=== PATIENT | female | born 1990 | race Caucasian/White ===

== ENCOUNTER 2017-02-21 17:22 | Emergency (ER) | payer OTHER ==
[~2017-02-21] VITALS: Ht 160 cm; Wt 73.1 kg
[~2017-02-21 17:22] MED LIST: ESCI1TAB10 PO; MELA1TAB3 PO; [UNRECOGNIZED DRUG - CODE] PO
[2017-02-21 17:29] VITALS: TEMP 36.9; Ht 160 cm; Wt 73.1 kg
--- NOTE | 2017-02-21 17:57 | EMERGENCY ROOM VISIT NOTE ---
History First contact with patient: 17:37 Chief Complaint: TEST REQUEST Stated Complaint: WANTS PREG TEST History of Present Illness The patient is a 27 year old female who presents to the Emergency Room with complaints of positive test. The patient states that her last normal menstrual period was December 23. She states her period was slightly late in January but she did have some spotting. She states she did not get a period. This week and therefore took a home test. She states it was positive. The patient takes methadone for opiate dependence. She came in to the emergency department for documentation of a positive test. She states she has also had sore throat, sinus congestion and ear pressure for the last 2 days. She denies any fevers. She denies any pain in her chest or trouble breathing. She denies any abdominal pain, vaginal bleeding or vaginal discharge. She is a female Review of Systems A 10 system review of systems was completed with positives and pertinent negatives listed in the HPI. Past Medical/Surgical History Medical Problems: (1) Asthma, Unspecified (2) Chronic Gingivitis, Plaque Induced (3) Tobacco Use Disorder Family History Diabetes mellitus Heart disease Hypertension Social History Smoking Status: Current Every Day Smoker Alcohol Use: occasionally Marital Status: single Occupation Status: employed Current/Historical Medications Scheduled Methadone Hcl (Methadone Hcl), 89 MG PO DAILY Allergies Coded Allergies: Penicillins (Unverified Allergy, Severe, "swelling" had as a child, ) Physical Exam Vital Signs Date Time Temp Pulse Resp B/P Pulse Ox O2 Delivery O2 Flow Rate FiO2 02/21/17 20:07 84 18 124/77 97 02/21/17 17:29 36.9 92 18 150/84 96 Room Air Physical Exam VITALS: Vitals are noted on the nurse's note and reviewed by myself. Vital signs stable. GENERAL: This is a 27 female, in no acute distress, nondiaphoretic, well- developed well-nourished. SKIN: The skin was without rashes, erythema, edema, or bruising. There is no tenting of the skin. Capillary reflex less than 2 seconds. HEAD: Normocephalic atraumatic. EARS: External auditory canals clear, tympanic membranes pearly sheikh without erythema or effusion bilaterally. EYES: Pupils equal round and reactive to light and accommodation. Conjunctivae without injection, sclerae without icterus. Extraocular movements intact. NOSE: Patent, turbinates without inflammation or discharge. MOUTH: Mucous membranes moist. Tonsils are not mildly enlarged and minimally erythematous. Pharynx withoutexudate. Uvula midline. Airway patent. Tongue does not deviate. NECK: Supple without nuchal rigidity. No JVD. HEART: Regular rate and rhythm without murmurs gallops or rubs. LUNGS: Clear to auscultation bilaterally without wheezes, rales or rhonchi. No dullness to percussion. No retractions or accessory muscle use. MUSCULOSKELETAL: No muscle atrophy, erythema, or edema noted. Full range of motion in all extremities. No tenderness to palpation. Normal gait. Strength 5/5 throughout. NEURO: Patient was alert and oriented to person place and time. No focal neurological deficits. Medical Decision & Procedures Laboratory Results Test 02/21/17 18:10 Human Chorionic Gonadotropin, Qual POS (NEG) ED Course Serum HCG was positive Rapid strep was negative The patient was encouraged to stop smoking She is on methadone for opiate dependence. She was advised to discuss this with SECURITIES SETTLEMENT PROCESSOR. She should start a vitamin She should contact SECURITIES SETTLEMENT PROCESSOR to schedule a follow-up appointment She should return with worsening symptoms. Medical Decision Differential diagnosis includes , strep pharyngitis, allergic rhinitis , among others Impression Primary Impression: Additional Impression: Allergic rhinitis Departure Information Dispostion Home / Self-Care Condition GOOD Referrals Minnie Nugent PA-C (PCP) Alena Downing, D.ORob Patient Instructions ED Care, [facility], Preg 1st Trimester Additional Instructions Stop smoking Contact central supply assistant for a follow up appointment to start care and to discuss methadone Take a pre vitamin daily Return with vaginal bleeding, severe abdominal pain Problem Qualifiers Primary Impression:
[2017-02-21 19:26] LABS: PREG INTERNAL NEGATIVE QC NEG CLEAR BACKGROUND; PREG INTERNAL POSITIVE QC POS CONTROL LINE
[2017-02-21 20:07] VITALS: BP 124/77; PULSE 84; O2SAT 97
== END 2017-02-21 20:09 | disposition home or self-care (01) ==
LOC: C.EDB 17:23 → C.EDD 20:09
DX: Z32.01 Encounter for pregnancy test, result positive (principal); J02.9 Acute pharyngitis, unspecified; F11.21 Opioid dependence, in remission; Z79.899 Other long term (current) drug therapy; J45.909 Unspecified asthma, uncomplicated; F17.210 Nicotine dependence, cigarettes, uncomplicated; Z83.3 Family history of diabetes mellitus; Z82.49 Family history of ischemic heart disease and other diseases of the circulatory system

== ENCOUNTER → 2017-03-04 | Outpatient (CLI) | payer OTHER ==
[~2017-03-04] MED LIST changes: -ESCI1TAB10 PO; -MELA1TAB3 PO; +METH10SO PO; +PRENTAB26 PO; -[UNRECOGNIZED DRUG - CODE] PO
[2017-03-08 15:28] LABS: CHLAMYDIA TRACH RNA*** NOT DETECTED (NOT DETECTED); GC (NEIS GONORRHOEAE)RNA** NOT DETECTED (NOT DETECTED)
== END | disposition home or self-care (01) ==
LOC: C.LABSPEC 10:33
PROVIDERS: ATTEND Obstetrics & Gynecology
DX: Z34.01 Encounter for supervision of normal first pregnancy, first trimester (principal)

== ENCOUNTER → 2017-03-04 | Outpatient (CLI) | payer OTHER ==
[~2017-03-04] MED LIST changes: +ALBU2SYP9 INH; +CALC-51 PO; +DOCU-94 PO
== END | disposition home or self-care (01) ==
LOC: C.PAPS 09:44
PROVIDERS: ATTEND Obstetrics & Gynecology
DX: Z34.01 Encounter for supervision of normal first pregnancy, first trimester (principal); R87.610 Atypical squamous cells of undetermined significance on cytologic smear of cervix (ASC-US)

== ENCOUNTER → 2017-03-06 | Outpatient (CLI) | payer OTHER | END | disposition home or self-care (01) | LOC: C.LAB 14:49 | PROVIDERS: ATTEND Obstetrics & Gynecology | DX: Z34.01 Encounter for supervision of normal first pregnancy, first trimester (principal) ==

== ENCOUNTER 2017-04-07 16:01 | Emergency (ER) | payer OTHER ==
[~2017-04-07] VITALS: Ht 160 cm; Wt 71.1 kg
[2017-04-07 16:13] VITALS: Ht 160 cm; Wt 71.1 kg
--- NOTE | 2017-04-07 16:42 | EMERGENCY ROOM VISIT NOTE ---
History Report prepared by Monik: Erin Mckeon Under the Supervision of: Dr. Yolanda Collier D.O. First contact with patient: 16:28 Chief Complaint: CONSTIPATION Stated Complaint: CONSTIPATION CAUSING PAIN,10 WKS PREG Nursing Triage Summary: Pt reports she has been constipated. pt repors she is on methadone and is usually constipated. Pt has been taking stool softeners and suppositories with no success. Pt is 10 weeks . History of Present Illness The patient is a 27 year old female who presents to the Emergency Room with complaints of constant constipation beginning a few days prior to arrival. The patient states that she is on Methadone and becomes constipated very easily. She had not taken a stool softener for 4 days. The patient has tried stool softeners and suppositories with no success of relieving her symptoms. The patient reports she is in significant pain and that she can feel the stool in her rectum. The patient also notes she has been vomiting after eating. She is 10 weeks . Source of History: patient Onset: few days RESEARCH MANAGEMENT ASSOCIATE Position: other (global) Quality: other (constipated) Timing: constant Associated Symptoms: + vomiting Note: The patient is in significant pain and can feel the stool in her rectum. Review of Systems See HPI for pertinent positives & negatives. A total of 10 systems reviewed and were otherwise negative. Past Medical & Surgical Medical Problems: (1) Asthma, Unspecified (2) Chronic Gingivitis, Plaque Induced (3) Tobacco Use Disorder Family History Diabetes mellitus Heart disease Hypertension Social History Smoking Status: Current Every Day Smoker Alcohol Use: occasionally Marital Status: in relationship Housing Status: lives with significant other Occupation Status: employed Current/Historical Medications Scheduled Methadone Hcl (Methadone Hcl), 96 MG PO DAILY Multivit/Min/Iron/Fol Ac/Pren ( Vitamin), 1 TAB PO DAILY Allergies Coded Allergies: Penicillins (Unverified Allergy, Severe, "swelling" had as a child, ) Physical Exam Vital Signs Date Time Temp Pulse Resp B/P Pulse Ox O2 Delivery O2 Flow Rate FiO2 04/07/17 17:53 69 16 115/62 04/07/17 17:45 36.7 98 18 117/77 94 04/07/17 16:13 36.7 98 18 117/77 94 Room Air Physical Exam General: Patient is tearful. HEENT: Head - normocephalic and atraumatic Pupils are equal, round, and reactive to light. Extraocular eye muscles are intact, and sclera are anicteric. Nose - moist nasal mucosa without discharge. Mouth - moist buccal mucosa. Oropharynx is nonerythematous and there is no tonsillar exudate or edema noted. Neck: Supple; no JVD, nuchal rigidity, cervical lymphadenopathy. Heart: Regular rate and rhythm. There is a normal S1 and S2 with no murmurs, clicks, or gallops appreciated. Lungs: Clear to auscultation bilaterally with no wheezes, rales, or rhonchi. Abdomen: Soft, completely nontender, nondistended, with good bowel sounds. There are no palpable pulsatile masses or hepatosplenomegaly. There is no guarding, rigidity, or rebound noted. Extremities: No evidence of cyanosis, clubbing, or edema. There are easily palpable peripheral pulses. Skin: warm and dry with good turgor and no rashes. Medical Decision & Procedures ED Course 1632: Past medical records reviewed. The patient was evaluated in room A3. A complete history and physical exam was performed. The nurse will try manual disimpaction. 1731: I reevaluated the patient. The nurse tried to disimpact the patient and nothing was there. The patient is drinking prune juice right now. She is feeling slightly better. 1740: Upon reevaluation, the patient is drinking the prune juice and will be discharged home. Medical Decision The patient is a 27 year old female who presents to the ED with constipation. Differential diagnosis includes constipation, fecal impaction, bowel obstruction. I've encouraged the patient to avoid bananas and dairy products. I suggested that she taking her stool softener as directed for her methadone-induced constipation. She can take prune juice and pear juice. If she does not have a bowel movement in the next 24-48 hours, she should follow-up with Dr. Barrett Gale Primary Impression: First trimester Additional Impression: Constipation Scribe Attestation The scribe's documentation has been prepared under my direction and personally reviewed by me in its entirety. I confirm that the note above accurately reflects all work, treatment, procedures, and medical decision making performed by me. Departure Information Dispostion Home / Self-Care Referrals No Doctor, Assigned (PCP) Forms HOME CARE DOCUMENTATION FORM, IMPORTANT VISIT INFORMATION Patient Instructions [facility] Additional Instructions Take plenty of clear liquids Take prune juice and pear juice. Avoid bananas and dairy over next 3-5 days Take your stool softner as directed by Dr. Hyde for the methadone induced constipated Problem Qualifiers
[2017-04-07] MEDS ORDERED: PRENTAB26 PO (17:18)
[2017-04-07 17:45] VITALS: TEMP 36.7; O2SAT 94
[2017-04-07 17:53] VITALS: BP 115/62; PULSE 69
[2017-04-07] MEDS ORDERED: METH10SO PO (18:28)
== END 2017-04-07 17:54 | disposition home or self-care (01) ==
LOC: C.EDB 16:02 → C.EDA 17:54
DX: K59.00 Constipation, unspecified (principal); O99.331 Smoking (tobacco) complicating pregnancy, first trimester; Z3A.10 10 weeks gestation of pregnancy; R11.10 Vomiting, unspecified; J45.909 Unspecified asthma, uncomplicated; K05.10 Chronic gingivitis, plaque induced; Z83.3 Family history of diabetes mellitus; Z82.49 Family history of ischemic heart disease and other diseases of the circulatory system

== ENCOUNTER → 2017-07-19 | Outpatient (CLI) | payer OTHER ==
[~2017-07-19] MED LIST changes: -ALBU2SYP9 INH; -CALC-51 PO; -DOCU-94 PO
[2017-07-19 10:50] LABS: BASO % 0.2 %; BASO ABS # 0.02 K/uL (0-0.2); COMPLETE YES; EOS % 2.9 %; HEMATOCRIT 38.5 % (37-47); IG% 0.3 %; LYMPH % 19.3 %; LYMPH ABS # 1.84 K/uL (1.2-3.4); MEAN CORPUSCULAR HEMOGLOBIN 31.9 pg (25-34); MEAN CORPUSCULAR HGB CONC 34.3 g/dl (32-36); MEAN PLATELET VOLUME 8.9 fL (7.4-10.4); MONO % 5.7 %; NEUT % 71.6 %; PLATELET COUNT 318 K/uL (130-400); RED BLOOD COUNT 4.14 M/uL (4.2-5.4); WHITE BLOOD COUNT 9.55 K/uL (4.8-10.8)
[2017-07-19 11:11] LABS: GTGD 50 Grams
== END | disposition home or self-care (01) ==
LOC: C.LAB 09:13
PROVIDERS: ATTEND Obstetrics & Gynecology
DX: Z34.02 Encounter for supervision of normal first pregnancy, second trimester (principal)

== ENCOUNTER 2017-08-01 13:42 | Emergency (ER) | payer OTHER ==
[~2017-08-01] VITALS: Ht 162.6 cm; Wt 76.0 kg
[2017-08-01 13:49] VITALS: TEMP 36.8; Ht 162.6 cm; Wt 76.0 kg
--- NOTE | 2017-08-01 14:33 | EMERGENCY ROOM VISIT NOTE ---
History Report prepared by Monik: Juan Carlos Clemente Under the Supervision of: Dr. Elver Burgos M.D. First contact with patient: 13:58 Chief Complaint: RIB PAIN Stated Complaint: 6MO PREG -LEFT RIB, PAIN, HARD TO BREATHE/MOVE History of Present Illness The patient is a 27 year old female who presents to the Emergency Room with complaints of worsening left rib pain beginning a few days ago. The patient states that she has been coughing a lot lately from a sinus infection, and she thought that her discomfort was from that. She reports that last night she bent over and heard a 'pop'. The patient notes that she felt a cramping sensation, and she has been in pain since. She states that she cannot cough, sneeze, talk, breath, or lift anything without increasing her discomfort. The patient reports that she is currently 27 weeks and wants to make sure everything is okay. She notes that she can still feel the baby moving. The patient states that she is currently taking methadone because she has a history of opiate abuse. She reports that she has been clean for 2 years. The patient notes that she has been using icy hot for pain because she is on methadone. She states that she has a history of bruised ribs, but her pain is much worse. The patient denies edema to her legs, vaginal bleeding, hematuria, vaginal discharge, abdominal pain, back pain, diarrhea, dysuria, and trauma. She also denies a history of pneumonia, pneumothorax, PE, blood clots, heart disease, and . The patient notes that she has a history of asthma and uses her inhaler as needed. She states that she was told she was hypertensive at the methadone clinic today. Source of History: patient, family Onset: few days ago Position: other (left rib) Quality: cramping Timing: worsening Modifying Factors (Worsening): breathing, movement Associated Symptoms: No abdominal pain, No back pain, No diarrhea Note: The patient denies edema to her legs, vaginal bleeding, hematuria, vaginal discharge, dysuria, and trauma. Review of Systems See HPI for pertinent positives & negatives. A total of 10 systems reviewed and were otherwise negative. Past Medical & Surgical Medical Problems: (1) Asthma, Unspecified (2) Chronic Gingivitis, Plaque Induced (3) Tobacco Use Disorder Old medical records were reviewed. Nurse's notes were reviewed and I agree with. Family History Diabetes mellitus Heart disease Hypertension Social History Smoking Status: Current Every Day Smoker Alcohol Use: occasionally Marital Status: in relationship Housing Status: lives with significant other Occupation Status: employed Current/Historical Medications Scheduled Methadone Hcl (Methadone Hcl), 96 MG PO DAILY Multivit/Min/Iron/Fol Ac/Pren ( Vitamin), 1 TAB PO DAILY Allergies Coded Allergies: Penicillins (Unverified Allergy, Severe, "swelling" had as a child, ) Physical Exam Vital Signs Date Time Temp Pulse Resp B/P (MAP) Pulse Ox O2 Delivery O2 Flow Rate FiO2 08/01/17 15:11 84 20 111/64 94 08/01/17 13:49 36.8 81 18 125/77 95 Room Air Physical Exam General: Well developed well nourished in no acute distress, breathing comfortably on room air. Normal speech. Non-ill appearing, young female. HEENT: Normal cephalic atraumatic. Pupils are equal round and reactive to light. Extraocular movements are intact. Oropharynx is pink with moist mucous membranes. No swelling of the mouth lips or tongue. Neck: Supple with a midline trachea. No meningeal signs or stiffness, no JVD or bruits. No Stridor. Chest: Clear to auscultation bilaterally. No wheezes or rhonchi. No increased work of breathing. Reproducible tenderness in the left lower rib, increased discomfort with movement, no crepitus. Heart: regular rate and rhythm. Abdomen: Soft nontender, gravid without rebound guarding or rigidity. Extremities: No cyanosis clubbing or edema. No calf tenderness or assymetry Spine/Back. Non tender to palpation. No CVA tenderness Skin: Good turgor without rashes. Neurologic exam: Cranial nerves two through 12 are intact. Motor and sensation are intact and symmetrical throughout. Medical Decision & Procedures ER Provider Diagnostic Interpretation: X-ray results as stated below per interpretation by me and the radiologist: Chest x-ray per my interpretation reveals no pneumothorax, failure, infiltrate, or definite rib fracture. CHEST ONE VIEW PORTABLE CLINICAL HISTORY: Left lower rib pain. Difficulty breathing. . COMPARISON STUDY: Chest radiograph August 01, 2016. TECHNIQUE: Mid to lower abdomen and pelvis were double shielded due to . Portable upright AP chest radiograph was obtained. FINDINGS: There is no pneumothorax or pleural effusion. Lungs are clear. Cardiomediastinal silhouette is normal. There is no evidence of pulmonary edema. There is a possible acute nondisplaced fracture of the lateral left seventh rib. There is also an age indeterminate minimally displaced fracture of the anterior lateral left 10th rib. IMPRESSION: 1. No pneumothorax. 2. Possible acute nondisplaced fracture of the anterolateral left seventh rib and age indeterminate minimally displaced fracture of the anterolateral left 10th rib. Electronically signed by: Michel Raza M.D. 08/01/2017 2:49 PM Dictated Date/Time: 08/01/2017 2:43 PM ECG Indication: other (rib pain) Rate (beats per minute): 75 Rhythm: normal sinus Findings: no ectopy, other (nonspecific-T wave abnormality) Comparison ECG Date: 08/17/14 Change: no significant change ED Course 1405: Past medical records reviewed. The patient was evaluated in room C12B, and a complete history and physical examination were performed. 1448: I reevaluated the patient and discussed her current exam findings. She reports that she is resting comfortably. We are waiting for the official x-ray read. 1504: Upon reevaluation, the patient is resting comfortably. I discussed the results and treatment plan with her. She verbalized agreement of the treatment plan. The patient was discharged home. Medical Decision Differentials include, but are not limited to; rib fracture, rib strain, PE, pneumonia, pneumothorax, complication. This patient comes in as described above. She has pain in her left lower rib, she is exquisitely tender one focal area. She's been having pain and she felt a pop. She is . She's had normal movements. No vaginal bleeding or discharge. No urinary symptoms. No fever. I did a chest x-ray after we shielded the baby. there was no pulmonary process seen. She had a nonischemic EKG. There is a questionable rib fracture on the left. Clinically she has nothing to suggest PE. Again she is exquisitely tender in 1 small area. She has nothing to suggest infection or acute problem related to her . She has no peripheral edema. She has nothing to suggest suggest preeclampsia. She is on methadone. She can continue to use his for pain and use [id number] ibuprofen 650 mg every 6 hours do not take with any other Tylenol products and do not exceed the [id number] recommended dosages. Return to ER if: Increasing pain, worsening of symptoms, fever chills, any new problems or concerns. Impression Primary Impression: Rib fracture Additional Impressions: Chest pain Scribe Attestation The scribe's documentation has been prepared under my direction and personally reviewed by me in its entirety. I confirm that the note above accurately reflects all work, treatment, procedures, and medical decision making performed by me. Departure Information Dispostion Home / Self-Care Referrals Andriy Blount III, M.D. (PCP) Forms HOME CARE DOCUMENTATION FORM, IMPORTANT VISIT INFORMATION, WORK / SCHOOL INSTRUCTIONS Patient Instructions My [facility] Additional Instructions Rest. Drink plenty of fluids. Continue current pain medications May also use Tylenol/acetaminophen a maximum of 650 mg every 6 hours. Do not take with any other medications that contain acetaminophen/Tylenol Return if: Increasing pain, worsening of symptoms, shortness of breath, fever or chills, any new problems or concerns Follow-up with your doctor for recheck this coming week or return here over the weekend if symptoms worsen Problem Qualifiers
--- NOTE | 2017-08-01 14:50 | DIAGNOSTIC IMAGING REPORT ---
CHEST ONE VIEW PORTABLE CLINICAL HISTORY: Left lower rib pain. Difficulty breathing. . COMPARISON STUDY: Chest radiograph August 01, 2016. TECHNIQUE: Mid to lower abdomen and pelvis were double shielded due to . Portable upright AP chest radiograph was obtained. FINDINGS: There is no pneumothorax or pleural effusion. Lungs are clear. Cardiomediastinal silhouette is normal. There is no evidence of pulmonary edema. There is a possible acute nondisplaced fracture of the lateral left seventh rib. There is also an age indeterminate minimally displaced fracture of the anterior lateral left 10th rib. IMPRESSION: 1. No pneumothorax. 2. Possible acute nondisplaced fracture of the anterolateral left seventh rib and age indeterminate minimally displaced fracture of the anterolateral left 10th rib. Electronically signed by: Michel Raza M.D. 08/01/2017 2:49 PM Dictated Date/Time: 08/01/2017 2:43 PM
[2017-08-01 15:11] VITALS: BP 111/64; PULSE 84; O2SAT 94
== END 2017-08-01 15:12 | disposition home or self-care (01) ==
LOC: C.EDB 13:45 → C.EDC 15:12
DX: O9A.212 Injury, poisoning and certain other consequences of external causes complicating pregnancy, second trimester (principal); S22.32XA Fracture of one rib, left side, initial encounter for closed fracture; X58.XXXA Exposure to other specified factors, initial encounter; J45.909 Unspecified asthma, uncomplicated; F17.200 Nicotine dependence, unspecified, uncomplicated; Z88.0 Allergy status to penicillin; Z83.3 Family history of diabetes mellitus; Z82.49 Family history of ischemic heart disease and other diseases of the circulatory system

== ENCOUNTER 2017-08-08 17:32 | Emergency (ER) | payer OTHER ==
[~2017-08-08] VITALS: Ht 162.6 cm; Wt 75.4 kg
[2017-08-08 17:36] VITALS: TEMP 37; Ht 162.6 cm; Wt 75.4 kg
[2017-08-08] MEDS ORDERED: MoRPHine SULFATE 4 MG/ML 1 ML CARP\\VIAL IV STA (17:50)
--- NOTE | 2017-08-08 18:49 | DIAGNOSTIC IMAGING REPORT ---
L RIBS UNILATERAL WITH PA CHEST CLINICAL HISTORY: Left sided rib pain s/p coughing. Hx fx. () pain COMPARISON STUDY: 08/01/2017 FINDINGS: Interval fracture left ninth rib. Remaining fractures are unchanged. Lungs remain clear. No evidence pneumothorax. IMPRESSION: Interval fracture left ninth rib. Pre-existing fractures are unchanged. No evidence for pneumothorax. The above report was generated using voice recognition software. It may contain grammatical, syntax or spelling errors. Electronically signed by: Cristi Cota M.D. 08/08/2017 6:48 PM Dictated Date/Time: 08/08/2017 6:46 PM
--- NOTE | 2017-08-08 19:08 | DIAGNOSTIC IMAGING REPORT ---
LIMITED (US) CLINICAL HISTORY: Cough, left rib pain now cramping. pain TECHNIQUE: Ultrasound COMPARISON STUDY: None FINDINGS: Single, viable intrauterine . Is made of gestational age 28 weeks. Cephalic presentation. Maternal cervix is closed and measures 5 cm. Anterior placenta. Amniotic fluid index 15 cm. heart rate 1 51 bpm. IMPRESSION: Single, viable intrauterine of approximately 28 weeks gestational age. The above report was generated using voice recognition software. It may contain grammatical, syntax or spelling errors. Electronically signed by: Cristi Cota M.D. 08/08/2017 7:07 PM Dictated Date/Time: 08/08/2017 7:05 PM
--- NOTE | 2017-08-08 20:01 | EMERGENCY ROOM VISIT NOTE ---
History First contact with patient: 17:41 Chief Complaint: RIB PAIN Stated Complaint: BROKEN RIBS,COUGHED,ABD/FLANK PAIN,28WKS PREG History of Present Illness The patient is a 27 year old female who presents to the Emergency Room via private vehicle with complaints of "broken ribs, cough, abdomen/flank pain, 28 weeks ". The patient states that she was seen here not long ago and diagnosed with rib fractures after bending forward. She states that she was doing well, but unfortunately today she was in her car, or in 1 PM and coughed, and heard a popping noise in the left anterior ribs. She now notes pain in this region, as well as cramping in the abdomen. She rates her pain as a 9/ 10. She denies any vaginal bleeding. She denies any chest pain or shortness of breath prior to the coughing incident around 1 PM. She takes methadone, and a multivitamin. Review of Systems A complete 10-point Review of Systems was discussed with the patient, with pertinent positives and negatives listed in the History of Present Illness. All remaining Review of Systems questions can be considered negative unless otherwise specified. Past Medical/Surgical History Medical Problems: (1) Asthma, Unspecified (2) Chronic Gingivitis, Plaque Induced (3) Tobacco Use Disorder Family History Diabetes mellitus Heart disease Hypertension Social History Smoking Status: Current Every Day Smoker Alcohol Use: occasionally Marital Status: in relationship Housing Status: lives with significant other Occupation Status: employed Current/Historical Medications Scheduled Methadone Hcl (Methadone Hcl), 96 MG PO DAILY Multivit/Min/Iron/Fol Ac/Pren ( Vitamin), 1 TAB PO DAILY Physical Exam Vital Signs Date Time Temp Pulse Resp B/P (MAP) Pulse Ox O2 Delivery O2 Flow Rate FiO2 08/08/17 20:13 96 18 125/79 94 08/08/17 18:08 82 20 130/70 99 Room Air 08/08/17 17:36 37.0 111 28 145/81 98 Room Air Physical Exam VITAL SIGNS - Vital signs and nursing notes were reviewed. Stable. Tachycardic. GENERAL -27-year-old female appearing her stated age who is in no acute distress but appears very anxious and is tearful. Communicates well with provider and answers questions appropriately. SKIN - Without rashes. No bruising, or evidence of trauma to the left anterior chest or abdomen. HEAD - NC/AT. EYES - Sclera anicteric. EARS - No deformities of external structures noted on gross examination bilaterally. NOSE - Midline and without cyanosis. No epistaxis or purulent drainage noted. MOUTH/OROPHARYNX - Without perioral cyanosis. NECK - Neck with FROM. Supple to palpation. LUNGS - Chest wall symmetric without accessory muscle use, intercostals retractions, or central cyanosis. Normal vesicular breath sounds CTA B/L. No wheezes, rales, or rhonchi appreciated. There is tenderness to palpation overlying the patient's left lateral anterior ribs. CARDIAC - RRR with S1/S2. No murmur, rubs, or gallops appreciated. ABDOMEN - Abdominal contour normal without pulsations or visible masses. No tenderness noted. Positioning of the fetus is appropriate. Medical Decision & Procedures ER Provider Diagnostic Interpretation: L RIBS UNILATERAL WITH PA CHEST CLINICAL HISTORY: Left sided rib pain s/p coughing. Hx fx. () pain COMPARISON STUDY: 08/01/2017 FINDINGS: Interval fracture left ninth rib. Remaining fractures are unchanged. Lungs remain clear. No evidence pneumothorax. IMPRESSION: Interval fracture left ninth rib. Pre-existing fractures are unchanged. No evidence for pneumothorax. The above report was generated using voice recognition software. It may contain grammatical, syntax or spelling errors. Electronically signed by: Cristi Cota M.D. 08/08/2017 6:48 PM Dictated Date/Time: 08/08/2017 6:46 PM LIMITED (US) CLINICAL HISTORY: Cough, left rib pain now cramping. pain TECHNIQUE: Ultrasound COMPARISON STUDY: None FINDINGS: Single, viable intrauterine . Is made of gestational age 28 weeks. Cephalic presentation. Maternal cervix is closed and measures 5 cm. Anterior placenta. Amniotic fluid index 15 cm. heart rate 1 51 bpm. IMPRESSION: Single, viable intrauterine of approximately 28 weeks gestational age. The above report was generated using voice recognition software. It may contain grammatical, syntax or spelling errors. Electronically signed by: Cristi Cota M.D. 08/08/2017 7:07 PM Dictated Date/Time: 08/08/2017 7:05 PM Medications Administered Medications (Trade) Dose Ordered Sig/Abbi Route Start Time Stop Time Status Last Admin Dose Admin Morphine Sulfate (MoRPHine SULFATE INJ) 4 mg NOW STAT IV 08/08/17 17:50 08/08/17 17:53 DC 08/08/17 18:08 4 MG Medical Decision Patient was seen and evaluated as above. She presents to us today with left rib pain status post coughing. There is no evidence of trauma on exam. She denies any abuse/trauma or violence. Previous visit was reviewed. Benefit versus risk of obtaining x-ray were considered, and the decision was made to obtain a radiograph of the ribs. This reveals an interval development of left anterior ninth rib fracture. She was given morphine intravenously for her pain , after discussing benefits versus risk. She was reevaluated and feeling much better. A ultrasound was also obtained. Results as above and noted to be excellent. The patient at this time is resting comfortable. I then discussed the case with the attending physician, and subsequent to the patient' s [employer] physician as this is unusual the patient is expressing fractures such as this with simple coughing and bending over. It was identified through the conversation with Dr. Hyde, that this certainly is unusual, but he would be happy to see the patient in his office by having the patient call his office first thing Friday morning at 9 AM. We discussed pain options, and it was decided that the patient could take Tylenol. She is already on methadone. At this time the patient appears stable for outpatient management. She was educated upon management, educated upon worrisome symptoms which to return, was given a work note with resections, had questions answered prior to discharge, and was discharged, condition. There is no evidence of IA or PE on examination. In the evaluation and treatment of this patient, the following differential diagnoses were considered: Rib Fracture, Rib Contusion, Hemothorax, Pneumothorax , Pneumonia, Pleural Effusion. Impression Primary Impression: Rib fracture Departure Information Dispostion Home / Self-Care Condition GOOD Referrals Andriy Blount III, M.D. (PCP) Patient Instructions My [facility] Additional Instructions You have been treated in the Emergency Department for Rib pain on the left. You have received pain medicine in the emergency department which impairs your ability to operate a vehicle. It is illegal for you to drive after receiving these medicines. For pain control, you can use the following [id number] medicines (if >12 yo): - Regular strength (325mg/tab) Tylenol (acetaminophen) 2 tabs every 4-6 hours as needed. Do not exceed 12 tablets in a 24 hour period. Avoid taking more than 3 grams (3000 mg) of Tylenol per day. This includes any other sources of acetaminophen you may take on a regular basis. If this is an acute injury, ice can be applied to the area of pain for the first 3 days to help decrease pain and inflammation. After the first 3 days, a heating pad can be used over the area for continued soothing relief. To minimize your discomfort, you can hug a pillow while coughing or sneezing. Additionally, you should continue to force yourself to take nice, deep breaths. Full expansion of the lungs is necessary to prevent the accumulation of fluid in the lung tissue and development of pneumonia. Please call your obgyn friday at 9am to schedule an appt. Please use the Incentive Spirometer several times per hour while awake to help prevent the development of pneumonia. Return to the Emergency Department if your current symptoms worsen despite treatment course outlined above, or if you develop any of the following symptoms : intractable pain despite aforementioned treatment course, development of a wet cough, bloody cough, fever, chills, or increased shortness of breath. L RIBS UNILATERAL WITH PA CHEST CLINICAL HISTORY: Left sided rib pain s/p coughing. Hx fx. () pain COMPARISON STUDY: 08/01/2017 FINDINGS: Interval fracture left ninth rib. Remaining fractures are unchanged. Lungs remain clear. No evidence pneumothorax. IMPRESSION: Interval fracture left ninth rib. Pre-existing fractures are unchanged. No evidence for pneumothorax. LIMITED (US) CLINICAL HISTORY: Cough, left rib pain now cramping. pain TECHNIQUE: Ultrasound COMPARISON STUDY: None FINDINGS: Single, viable intrauterine . Is made of gestational age 28 weeks. Cephalic presentation. Maternal cervix is closed and measures 5 cm. Anterior placenta. Amniotic fluid index 15 cm. heart rate 1 51 bpm.
[2017-08-08 20:13] VITALS: BP 125/79; PULSE 96; O2SAT 94
== END 2017-08-08 20:14 | disposition home or self-care (01) ==
LOC: C.EDB 17:32 → C.EDC 20:14
DX: M84.48XA Pathological fracture, other site, initial encounter for fracture (principal); O26.893 Other specified pregnancy related conditions, third trimester; O99.513 Diseases of the respiratory system complicating pregnancy, third trimester; R05 Cough; J45.909 Unspecified asthma, uncomplicated; O99.335 Smoking (tobacco) complicating the puerperium; Z79.891 Long term (current) use of opiate analgesic; Z79.899 Other long term (current) drug therapy; Z82.49 Family history of ischemic heart disease and other diseases of the circulatory system; Z83.3 Family history of diabetes mellitus; F17.200 Nicotine dependence, unspecified, uncomplicated; Z3A.28 28 weeks gestation of pregnancy

== ENCOUNTER → 2017-08-12 | Outpatient (CLI) | payer OTHER | END | disposition home or self-care (01) | LOC: C.LAB 15:55 | PROVIDERS: ATTEND Obstetrics & Gynecology | DX: R05 Cough (principal); E55.9 Vitamin D deficiency, unspecified ==

== ENCOUNTER → 2017-10-02 | Outpatient (CLI) | payer OTHER | END | disposition home or self-care (01) | LOC: C.LABSPEC 14:28 | PROVIDERS: ATTEND Obstetrics & Gynecology | DX: O09.93 Supervision of high risk pregnancy, unspecified, third trimester (principal); Z3A.00 Weeks of gestation of pregnancy not specified ==

== ENCOUNTER 2017-10-23 07:50 | Inpatient (IN) | payer OTHER ==
[~2017-10-23] VITALS: Ht 160 cm; Wt 82.0 kg
[2017-10-23 09:07] VITALS: Ht 160 cm; Wt 82.0 kg
[2017-10-23] MEDS ORDERED: DOCU-94 PO (09:15)
[2017-10-23] MEDS ORDERED: ALBU2SYP9 INH (09:20)
[2017-10-23] MEDS ORDERED: LACTATED RINGER'S 1000ML 1,000 ML IV PRN (10:15)
[2017-10-23] MEDS ORDERED: LACTATED RINGER'S 1000ML 1,000 ML IV SCH (10:15)
[2017-10-23] MEDS ORDERED: LACTATED RINGER'S 1000ML 500 ML IV PRN ×2 (10:20→13:41)
[2017-10-23] MEDS ORDERED: OXYTOCIN 30 UNITS/500ML NSS IV PRN ×2 (10:30→17:30)
[2017-10-23 11:16] LABS: HEMATOCRIT 36.2 % (37-47); MEAN CELL VOLUME 88.7 fL (80-100); MEAN CORPUSCULAR HEMOGLOBIN 31.6 pg (25-34); MEAN CORPUSCULAR HGB CONC 35.6 g/dl (32-36); MEAN PLATELET VOLUME 9.1 fL (7.4-10.4); PLATELET COUNT 257 K/uL (130-400); RED BLOOD COUNT 4.08 M/uL (4.2-5.4)
[2017-10-23] MEDS ORDERED: CALC-51 PO (11:57)
[2017-10-23] MEDS ORDERED: FENTANYL 2MCG/ML ROPIV 1.25MG/ML 100ML BAG EPI ONE (12:52)
[2017-10-23] MEDS ORDERED: EpHEDrine SULFATE INJ 50 MG/ML AMP ONE (12:52)
[2017-10-23] MEDS ORDERED: BUPIVACAINE 0.25% 30 ML VIAL ONE (12:52)
[2017-10-23] MEDS ORDERED: FENTANYL CITRATE INJ 50 MCG/1 ML 2 ML VIAL ONE (12:53)
[2017-10-23] MEDS ORDERED: NALOXONE HCL INJ 1 MG in SODIUM CHLORIDE 0.9% 1000ML 1,000 ML IV PRN (13:41)
[2017-10-23] MEDS ORDERED: FENTANYL 2MCG/ML ROPIV 1.25MG/ML 100ML BAG EPI PRN (13:45)
[2017-10-23] MEDS ORDERED: NALOXONE HCL INJ 0.4 MG/1 ML VIAL/CARP IV PRN (13:45)
[2017-10-23] MEDS ORDERED: NALBUPHINE HCL INJ 10 MG/ML AMP IV PRN (13:45)
[2017-10-23] MEDS ORDERED: DiphenhydrAMINE HCL 50 MG/ML VIAL IV PRN (13:45)
[2017-10-23] MEDS ORDERED: EpHEDrine SULFATE INJ 50 MG/ML AMP IV PRN (13:45)
[2017-10-23] MEDS ORDERED: METHYLERGONOVINE MALEATE 0.2 MG/ML AMP ONE (17:13)
[2017-10-23] MEDS ORDERED: SUPERCREAM 0.870 % 15GM JAR EXT PRN (17:30)
[2017-10-23] MEDS ORDERED: ACETAMINOPHEN/CODEINE 300/30MG TAB PO PRN (17:30)
[2017-10-23] MEDS ORDERED: HYDROCORTISONE ACETATE 25 MG SUPP PR PRN (17:30)
[2017-10-23] MEDS ORDERED: ACETAMINOPHEN 325 MG TAB PO PRN (17:30)
[2017-10-23] MEDS ORDERED: BENZOCAINE 20% AER SPR 82.5 GM CAN EXT PRN (17:30)
[2017-10-23] MEDS ORDERED: OXYCODONE/ACETAMINOPHEN 5-325 TAB PO PRN (17:30)
[2017-10-23] MEDS ORDERED: LANOLIN OINT EXT PRN ×2 (17:30)
--- NOTE | 2017-10-23 17:55 | Anesthesia Procedure Note ---
Anesthesia Epidural Removal Nt Date & Time Oct 23, 2017 at 17:55 Vital Signs Pain Intensity: 0.0 Notes Mental Status: alert / awake / arousable, participated in evaluation Nausea / Vomiting: adequately controlled Pain: adequately controlled Airway Patency, RR, SpO2: stable & adequate BP & HR: stable & adequate Hydration State: stable & adequate Neuraxial Anesthesia: was administered, sensory block is resolving Anesthetic Complications: no major complications apparent, pt satisfied with anesthetic care Epidural: removed without complications, with tip intact
[2017-10-23] MEDS: DOCUSATE SODIUM 100 MG CAP PO SCH (20:43)
[2017-10-23] MEDS: ACETAMINOPHEN/CODEINE 300/30MG TAB PO PRN (20:44)
[2017-10-23] MEDS: IBUPROFEN 600 MG TAB PO PRN (20:45)
--- NOTE | 2017-10-23 20:47 | DELIVERY SUMMARY ---
DATE OF OPERATION: 10/23/2017 Mrs. Ritchie been followed in our office for care and delivery. Her blood type is B positive. She is rubella immune. She is on methadone, originally she was on 103 mg a day and by the time she came in for delivery was 109 mg a day. She is a pack a day smoker for 16 years. Her last 2 visits in the office, her cervix was already dilated and at the time of admission, her cervix was 6+ cm dilated with membranes bulging. She was started on IV Pitocin. When she got to about 8 cm, she got an epidural. Soon after that membranes were ruptured surgically. She had a lot of clear fluid. She continued to contract regularly, went to full dilatation and pushed out a live infant via direct occiput anterior position over an intact perineum. There was a very tight nuchal cord x2 that was grasped. One of the cord sections was clamped and cut and then unwrapped around the head. Then the was suctioned through the mouth and the nose. Body was then delivered without difficulty. My own estimation 1 and 5 minute Apgars were 6 and 7 respectively. With IV Pitocin running, the placenta was removed intact after obtaining cord blood. Then after removing the placenta, the uterus contracted nicely. There were 2 periurethral lacerations of labia minora. These were repaired with a running 3-0 chromic. A very superficial first degree of the posterior vagina which was also repaired with a running 3-0 chromic. Following this, vaginal examination revealed no hematoma formation or sponges in the vagina. She did have some clots and she was given some Methergine along with the Pitocin along with massaging out all of the clots. Estimated blood loss was estimated at about 400 mL. The patient tolerated the procedure well. I attest to the content of the Intraoperative Record and any orders documented therein. Any exception s are noted below.
[2017-10-23 21:17] VITALS: BP 139/87; PULSE 78; TEMP 37.4; O2SAT 100
[2017-10-23 23:15] VITALS: BP 129/79; PULSE 67; TEMP 36.9; O2SAT 97
[2017-10-24] MEDS: IBUPROFEN 600 MG TAB PO PRN ×2 (00:51→03:48)
[2017-10-24] MEDS: ACETAMINOPHEN/CODEINE 300/30MG TAB PO PRN ×2 (00:52→03:50)
[2017-10-24 03:40] VITALS: BP 109/73; PULSE 71; TEMP 37; O2SAT 97
[2017-10-24 06:40] LABS: HEMATOCRIT 33.1 % (37-47)
[2017-10-24 07:25] VITALS: BP 124/83; PULSE 83; TEMP 36.6; O2SAT 99
[2017-10-24] MEDS: METHADONE ORAL SOLN 2 MG/1ML PO SCH (07:42)
[2017-10-24] MEDS: DOCUSATE SODIUM 100 MG CAP PO SCH ×2 (07:42→19:46)
[2017-10-24] MEDS: PRENATAL VITAMIN TAB PO SCH (07:42)
[2017-10-24] MEDS: FERROUS SULFATE 325 MG TAB PO SCH (07:42)
[2017-10-24] MEDS ORDERED: METHADONE ORAL SOLN 5 MG/2.5 ML UDP PO SCH ×2 (08:00)
[2017-10-24] MEDS ORDERED: [UNRECOGNIZED DRUG - OTHER] PO SCH (08:00)
--- NOTE | 2017-10-24 08:55 | Progress Note ---
Subjective Oct 24, 2017. Subjective conversation w/ patient Ambulation: ambulating normally Voiding: no voiding problems Passing Gas: Yes Diet Tolerance: Regular Diet Lochia: Small Review of Systems Constitutional: + fever Objective Vital Signs Date Time Temp Pulse Resp B/P (MAP) Pulse Ox O2 Delivery O2 Flow Rate FiO2 10/24/17 03:40 37.0 71 16 109/73 (85) 97 Room Air 10/23/17 23:15 97 Room Air 10/23/17 23:15 36.9 67 18 129/79 (96) 97 Room Air 10/23/17 21:17 37.4 78 16 139/87 (104) 100 Room Air Physical Exam General Appearance: WELL-APPEARING Respiratory/Chest: lungs clear Abdomen: non tender Fundus: Firm, Non-Tender Extremities: no pedal edema, no calf tenderness Laboratory Results Last 24 Hours Test 10/23/17 10:51 10/24/17 06:08 White Blood Count 12.20 K/uL Red Blood Count 4.08 M/uL Hemoglobin 12.9 g/dL 11.9 g/dL Hematocrit 36.2 % 33.1 % Mean Corpuscular Volume 88.7 fL Mean Corpuscular Hemoglobin 31.6 pg Mean Corpuscular Hemoglobin Concent 35.6 g/dl RDW Standard Deviation 40.1 fL RDW Coefficient of Variation 12.5 % Platelet Count 257 K/uL Mean Platelet Volume 9.1 fL Assessment and Plan Problem List Medical Problems: (1) Abdominal pain Status: Acute (2) Allergic rhinitis Status: Acute (3) Central abdominal pain Status: Acute (4) Constipation Status: Acute (5) Cystitis Status: Acute (6) First trimester Status: Acute (7) Nausea Status: Acute (8) Pneumonitis Status: Acute (9) Status: Acute (10) Rib fracture Status: Acute Post- Day#: 1
[2017-10-24] MEDS ORDERED: DIPHTHERIA/TETANUS/PERTUSSIS 0.5 ML SYR/VIAL IM. ONE (09:00)
[2017-10-24 11:52] VITALS: BP 135/77; PULSE 84; TEMP 36.7
[2017-10-24 16:00] VITALS: BP 130/83; PULSE 65; TEMP 36.8
[2017-10-24] MEDS ORDERED: BISACODYL 5 MG TABEC PO SCH (20:00)
[2017-10-24 23:20] VITALS: BP 127/83; PULSE 71; TEMP 36.8
[2017-10-25] MEDS: IBUPROFEN 600 MG TAB PO PRN ×2 (02:56→08:51)
[2017-10-25] MEDS ORDERED: BISACODYL 10 MG SUPP PR PRN (07:00)
[2017-10-25 07:30] VITALS: BP 127/84; PULSE 79; TEMP 36.4
[2017-10-25] MEDS: FERROUS SULFATE 325 MG TAB PO SCH (08:51)
[2017-10-25] MEDS: PRENATAL VITAMIN TAB PO SCH (08:51)
[2017-10-25] MEDS: DOCUSATE SODIUM 100 MG CAP PO SCH (08:51)
[2017-10-25] MEDS: METHADONE ORAL SOLN 2 MG/1ML PO SCH (09:50)
--- NOTE | 2017-10-25 10:38 | Progress Note ---
Subjective Oct 25, 2017. Subjective conversation w/ patient Ambulation: ambulating normally Voiding: no voiding problems Passing Gas: Yes Diet Tolerance: Regular Diet Lochia: Small Feeding Type: Bottle Feeding Review of Systems Constitutional: + fever Objective Vital Signs Date Time Temp Pulse Resp B/P (MAP) Pulse Ox O2 Delivery O2 Flow Rate FiO2 10/25/17 07:30 Room Air 10/25/17 07:30 36.4 79 20 127/84 (98) Room Air 10/24/17 23:20 Room Air 10/24/17 23:20 36.8 71 16 127/83 (98) Room Air 10/24/17 16:00 Room Air 10/24/17 16:00 36.8 65 14 130/83 (99) Room Air 10/24/17 11:52 36.7 84 18 135/77 (96) Room Air Physical Exam General Appearance: WELL-APPEARING Respiratory/Chest: lungs clear Abdomen: non tender Fundus: Firm, Non-Tender Extremities: no pedal edema, no calf tenderness Assessment and Plan Problem List Medical Problems: (1) Abdominal pain Status: Acute (2) Allergic rhinitis Status: Acute (3) Central abdominal pain Status: Acute (4) Constipation Status: Acute (5) Cystitis Status: Acute (6) First trimester Status: Acute (7) Nausea Status: Acute (8) Pneumonitis Status: Acute (9) Status: Acute (10) Rib fracture Status: Acute Post- Day#: 2
--- NOTE | 2017-10-25 10:41 | Discharge Instructions ---
Discharge Instructions Date of Service Oct 25, 2017. Admission Reason for Admission: Induction Discharge Discharge Diagnosis / Problem: term Discharge Goals Goal(s): Routine recovery after delivery Activity Recommendations Activity Limitations: as noted below ACTIVITY RECOMMENDATIONS: * Gradual return to full activity over the next 2-3 weeks. * No lifting - nothing heavier than baby over the next 2-3 weeks. * Do not engage in vigorous exercise, sexual activity or sports until cleared by your physician. * Do not drive or operate any motorized equipment until cleared by your physician. * You may shower/bathe daily. DIET: Resume Previous Diet If Breast-feeding: * Increase caloric intake by 500 calories, eat 3 well balanced meals, 2 high protein snacks a day and drink 6-8 8oz. glasses of fluid per day. BREAST CARE: If you are not breast feeding: * Wear a supportive bra 24 hours a day for one to two weeks. * Avoid stimulating your breasts and nipples as much as possible during the first few weeks after delivery. * When taking a shower, have the warm water hit your back, not breasts. * When your breasts feel full, apply ice packs. Usually three to four times a day helps ease the discomfort. * Take a mild pain medication (Tylenol / Motrin) when you are uncomfortable. If breast feeding: * Use breast milk to lubricate nipples. Lansinoh cream may be used for sore nipples. You do not need to remove cream prior to breast feeding. If using a different brand of cream, check the label for directions regarding removal of cream prior to nursing. * Wear a supportive bra. * If having problems with breasts or breast feeding, call a jury consultant or your health care provider. OVER THE COUNTER MEDICATION: * For discomfort or pain, you may use Acetaminophen (Tylenol), Ibuprofen (Advil ), or Naproxen (Aleve) following the package directions. * For constipation you may use Colace following the package directions. SPECIAL CARE INSTRUCTIONS: * Vaginal rest (no tampons, douching, intercourse) until after doctor 's visit. * control as discussed with doctor. * Verbalizes understanding of car seat law as reviewed with patient nursing. * Car Seat hand-out given and reviewed with patient by nursing. * Shaken baby information reviewed with patient by nursing. Call you doctor if: * Temperature greater than or equal to 100.4 degrees F or 38.0 degrees C. Take your temperature twice daily for a week. * Bleeding becomes heavier than the heaviest part of your period - saturating a sanitary pad within an hour. * Passing large clots. * Bleeding has a foul smelling odor. * Signs and symptoms of phlebitis: leg pain, warm, red or swollen area on leg. * "Baby Blues" lasting longer than two weeks. ++ If you have had a and incision has increased pain, redness, swelling, presence of any drainage, or if the incision starts to open up. If you have any questions or concerns, call your health care practitioner at [phone]. FOLLOW-UP VISIT: Please call the office at to schedule a 6 week examination. . Current Hospital Diet ACTIVITY RECOMMENDATIONS: * Gradual return to full activity over the next 2-3 weeks. * No lifting - nothing heavier than baby over the next 2-3 weeks. * Do not engage in vigorous exercise, sexual activity or sports until cleared by your physician. * Do not drive or operate any motorized equipment until cleared by your physician. * You may shower/bathe daily. DIET: Resume Previous Diet If Breast-feeding: * Increase caloric intake by 500 calories, eat 3 well balanced meals, 2 high protein snacks a day and drink 6-8 8oz. glasses of fluid per day. BREAST CARE: If you are not breast feeding: * Wear a supportive bra 24 hours a day for one to two weeks. * Avoid stimulating your breasts and nipples as much as possible during the first few weeks after delivery. * When taking a shower, have the warm water hit your back, not breasts. * When your breasts feel full, apply ice packs. Usually three to four times a day helps ease the discomfort. * Take a mild pain medication (Tylenol / Motrin) when you are uncomfortable. If breast feeding: * Use breast milk to lubricate nipples. Lansinoh cream may be used for sore nipples. You do not need to remove cream prior to breast feeding. If using a different brand of cream, check the label for directions regarding removal of cream prior to nursing. * Wear a supportive bra. * If having problems with breasts or breast feeding, call a jury consultant or your health care provider. OVER THE COUNTER MEDICATION: * For discomfort or pain, you may use Acetaminophen (Tylenol), Ibuprofen (Advil ), or Naproxen (Aleve) following the package directions. * For constipation you may use Colace following the package directions. SPECIAL CARE INSTRUCTIONS: * Vaginal rest (no tampons, douching, intercourse) until after doctor 's visit. * control as discussed with doctor. * Verbalizes understanding of car seat law as reviewed with patient nursing. * Car Seat hand-out given and reviewed with patient by nursing. * Shaken baby information reviewed with patient by nursing. Call you doctor if: * Temperature greater than or equal to 100.4 degrees F or 38.0 degrees C. Take your temperature twice daily for a week. * Bleeding becomes heavier than the heaviest part of your period - saturating a sanitary pad within an hour. * Passing large clots. * Bleeding has a foul smelling odor. * Signs and symptoms of phlebitis: leg pain, warm, red or swollen area on leg. * "Baby Blues" lasting longer than two weeks. ++ If you have had a and incision has increased pain, redness, swelling, presence of any drainage, or if the incision starts to open up. If you have any questions or concerns, call your health care practitioner at [phone]. FOLLOW-UP VISIT: Please call the office at to schedule a 6 week examination. Patient's current hospital diet: Regular OB Diet Discharge Diet Recommended Diet: Regular Diet Pending Studies Studies pending at discharge: no Medical Emergencies . Who to Call and When: Medical Emergencies: If at any time you feel your situation is an emergency, please call 911 immediately. . Non-Emergent Contact Non-Emergency issues call your: Exhibit Artist Call Non-Emergent contact if: temperature is above 100.5 . . "Provider Documentation" section prepared by Shree Hyde. . VTE Core Measure Inpt VTE Proph given/why not?: Treatment not indicated
[2017-10-25 11:25] VITALS: BP_DIAS 84; PULSE 79; TEMP 36.4
== END 2017-10-25 11:25 | disposition home or self-care (01) | DRG 775 ==
LOC: C.LD 07:50 → C.OBG 19:48
PROVIDERS: ADMIT Obstetrics & Gynecology; ATTEND Obstetrics & Gynecology
PROC: 0HQ9XZZ Repair Perineum Skin, External Approach (ICD-10-PCS; principal; 2017-10-23)
PROC: 10E0XZZ Delivery of Products of Conception, External Approach (ICD-10-PCS; principal; 2017-10-23)
DX: O70.0 First degree perineal laceration during delivery (principal); O69.1XX1 Labor and delivery complicated by cord around neck, with compression, fetus 1; O99.333 Smoking (tobacco) complicating pregnancy, third trimester; Z37.0 Single live birth; Z3A.39 39 weeks gestation of pregnancy; F17.210 Nicotine dependence, cigarettes, uncomplicated

== ENCOUNTER → 2017-12-22 | Outpatient (CLI) | payer OTHER ==
[~2017-12-22] MED LIST changes: +ALBU2SYP9 INH; +CALC-51 PO; +DOCU-94 PO
== END | disposition home or self-care (01) ==
LOC: C.PAPS 16:12
PROVIDERS: ATTEND Obstetrics & Gynecology
DX: R87.612 Low grade squamous intraepithelial lesion on cytologic smear of cervix (LGSIL) (principal); A59.09 Other urogenital trichomoniasis

== ENCOUNTER → 2017-12-22 | Outpatient (CLI) | payer OTHER | END | disposition home or self-care (01) | LOC: C.PATHSPEC 14:49 | PROVIDERS: ATTEND Obstetrics & Gynecology | DX: R87.612 Low grade squamous intraepithelial lesion on cytologic smear of cervix (LGSIL) (principal) ==

== ENCOUNTER 2019-05-03 10:39 | Inpatient (IN) ==
[2019-05-03] MEDS ORDERED: OXYTOCIN 30 UNITS/500 ML BAG IV PRN ×3 (11:38→17:05)
[2019-05-03 12:36] LABS: Hemoglobin 11.2 g/dL (12.0-16.0); Mean Corpuscular Volume 89.1 fL (80-100); Platelet Count 241 K/uL (130-400); RDW Coefficient of Variation 13.2 % (11.5-14.5); RDW Standard Deviation 42.5 fL (36.4-46.3); Red Blood Count 3.59 M/uL (4.2-5.4); White Blood Count 8.82 K/uL (4.8-10.8)
[2019-05-03] MEDS ORDERED: ePHEDrine sulfate 50 MG/ML AMP ONE (12:38)
[2019-05-03] MEDS ORDERED: fentaNYL citrate 100 MCG/2 ML VIAL ONE (12:38)
[2019-05-03] MEDS ORDERED: BUPIVACAINE 0.25% 30 ML VIAL ONE (12:38)
[2019-05-03] MEDS ORDERED: fentaNYL 2MCG/ML ROPIV 1.25MG/ML 100 ML BAG EPI ONE (12:39)
[2019-05-03] MEDS: LACTATED RINGER'S 1,000 ML IV PRN ×2 (12:48→14:46)
[2019-05-03] MEDS ORDERED: DiphenhydrAMINE HCL 50 MG/ML VIAL IV PRN (14:50)
[2019-05-03] MEDS ORDERED: fentaNYL 2MCG/ML ROPIV 1.25MG/ML 100 ML BAG EPI PRN (14:50)
[2019-05-03] MEDS ORDERED: PROMETHAZINE HCL 6.25 MG in SODIUM CHLORIDE 0.9% 50 ML IV PRN (14:50)
[2019-05-03] MEDS ORDERED: NALOXONE HCL 0.4 MG/1 ML VIAL/CARP IV PRN (14:50)
[2019-05-03] MEDS ORDERED: NALBUPHINE HCL INJ 10 MG/ML AMP IV PRN (14:50)
[2019-05-03] MEDS ORDERED: ONDANSETRON INJ 2 MG/ML 2 ML VIAL IV PRN (14:50)
[2019-05-03] MEDS ORDERED: NALOXONE HCL 1 MG in SODIUM CHLORIDE 0.9% 1000ML 1,000 ML IV PRN (14:50)
[2019-05-03] MEDS ORDERED: ePHEDrine sulfate 50 MG/ML AMP IV PRN (14:50)
--- NOTE | 2019-05-03 14:55 | Anesthesiology Consultation ---
Date of Service May 03, 2019 Assessment & Plan (1) Encounter for pre-operative examination: Chart Review Chart Review: Patient NOT seen in Pre Admission Testing and Acceptable Risk for Labor Epidural Consults Requested none ASA ASA2 Proposed Anesthesia Anesthesia Type: Labor Epidural Risk / Benefits Reviewed With: PT / POA / Parent / Guardian, Accepts Plan and Informed Consent Obtained History Height/Weight Height: 5 ft 3 in Weight: 84.368 kg Allergies Allergy/AdvReac Type Severity Reaction Status Date / Time Penicillins Allergy Severe "swelling" Verified 05/03/19 11:20 had as a child Medications Home Medications Medication Instructions Recorded Confirmed Last Taken methadone 48 mg PO DAILY 05/03/19 05/03/19 05/03/19 10:15 vit-iron fum-folic ac 1 tab PO DAILY 05/03/19 05/03/19 04/30/19 [ Vitamin] Active Medications Generic Name Dose Route Start Last Admin Trade Name Freq PRN Reason Stop Dose Admin Lactated Ringer's 1,000 mls @ 125 mls/hr 05/03/19 11:38 05/03/19 14:46 Lr IV 05/05/19 11:37 999 mls/hr .Q8H PRN Administration L&D Protocol Protocol Oxytocin 30 units in 500 mls @ 4 mls/hr 05/03/19 11:41 05/03/19 13:23 Pitocin IV 05/05/19 11:40 0.24 units/hr .Q24H PRN 4 mls/hr Labor Induction/Augmentation Titration Protocol 0.24 UNITS/HR NPO Date Last Intake of Fluids: 05/03/19 Time Last Intake of Fluids: 14:00 Date Last Intake of Solids: 05/02/19 Time Last Intake of Solids: 20:00 Past Medical History Medical History Anxiety previously medicated, denies current medications Asthma History of heroin abuse Seasonal allergies Exercise / Class Metabolic Activity II 4-5 Yardwork/Stairs/Walk up hill Past Surgical History Surgical History No pertinent past surgical history Past Anesthesia History No Hx of Anesthesia Complications and No Family Hx of Anesthesia Complications History of PONV No Hx of PONV and No Hx of Motion Sickness Social History Smoking Status: Current every day smoker tobacco type: cigarettes Smoking cigarettes per day: 10 Do You Dip or Chew Tobacco: No Hx Alcohol Use: No Hx Substance Use: No substance use type: former substance user Last Used Substance Other:: history of heroine abuse 2 years ago Physical Exam Vital Signs Last Vital Signs Temp 36.8 C 05/03/19 11:49 Pulse 89 05/03/19 14:50 Resp 20 05/03/19 11:49 BP 110/61 05/03/19 14:50 Pulse Ox 98 05/03/19 14:50 ENMT Mouth: no dentition abnormality Thyromental Distance: > or= 3.5 Finger Breadths Mallampati Class: II tongue ring, removed. Neck normal visual inspection Respiratory normal respiratory effort Auscultation: lungs clear to auscultation bilaterally Cardiovascular Rate/Rhythm: regular rate and regular rhythm Psychiatric Orientation: alert Testing Laboratory Results 05/03/19 12:18
[2019-05-03] MEDS ORDERED: METHYLERGONOVINE MALEATE 0.2 MG/ML AMP ONE (17:01)
[2019-05-03] MEDS ORDERED: HYDROCORTISONE ACETATE 25 MG SUPP PR PRN (17:05)
[2019-05-03] MEDS ORDERED: DIPHTHERIA/TETANUS/PERTUSSIS 0.5 ML SYR/VIAL IM ONE (17:05)
[2019-05-03] MEDS ORDERED: SUPERCREAM 0.870% 15 GM JAR EXT PRN (17:05)
[2019-05-03] MEDS ORDERED: ACETAMINOPHEN W/CODEINE #3 1 TAB PO PRN (17:05)
[2019-05-03] MEDS ORDERED: ACETAMINOPHEN 325 MG TAB PO PRN (17:05)
[2019-05-03] MEDS ORDERED: METHYLERGONOVINE MALEATE 0.2 MG/ML AMP IM ONE (17:05)
[2019-05-03] MEDS ORDERED: BENZOCAINE 20% AER SPR 82.5 GM CAN EXT PRN (17:05)
[2019-05-03] MEDS ORDERED: OXYCODONE/ACETAMINOPHEN 5mg/325mg TAB PO PRN (17:05)
[2019-05-03] MEDS: IBUPROFEN 600 MG TAB PO PRN ×2 (17:23→23:04)
[2019-05-03] MEDS: NICOTINE 21 MG/24 HR TDSY TD SCH (18:39)
[2019-05-03] MEDS ORDERED: Nursing to Pharmacy Communication ONE (18:50)
[2019-05-03] MEDS: DOCUSATE SODIUM 100 MG CAP PO SCH (20:40)
--- NOTE | 2019-05-03 22:08 | Delivery Summary ---
DATE OF OPERATION: 05/03/2019 The patient is a 29-year-old 2, para 2. She allergic to penicillin which gives her rash. 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 Blood type is B positive, rubella immune, group B strep negative. Was dated with an early ultrasound, due date 05/08/2019. She called stating she was having sporadic contractions and cramping. She was seen on labor floor, she was 6-7 cm dilated with sporadic contractions. IV was started. She was given IV Pitocin, contractions became regular. When she was about 7-8 cm, membranes were ruptured surgically. Pitocin was continued. She went to full dilatation and pushed out a live infant via direct occiput anterior position over an intact perineum. There was an extremely tight nuchal cord which had to be clamped in 2 places and then cut. Then shoulders of the infant were delivered without difficulty after suctioning the through the mouth and the nose. had some movement, was a little bit limp on , was handed off to the nurses for oxygen. Cord blood was taken. With IV Pitocin running, placenta was removed intact. There was a little atony after the removal of the placenta. She was given additional dose of 0.2 mg IM Methergine. Inspection of the perineum revealed everything was intact. Uterus eventually contracted nicely. Estimated blood loss was 200 mL. The patient tolerated the procedure well. I attest to the content of the Intraoperative Record and any orders documented therein. Any exception s are noted below.
[2019-05-04 06:52] LABS: Hematocrit (blood only) 32.8 % (37-47); Hemoglobin 11.3 g/dL (12.0-16.0); Mean Corpuscular Hgb Conc 34.5 g/dL (32-36); Mean Corpuscular Volume 90.1 fL (80-100); Mean Platelet Volume 9.5 fL (7.4-10.4); Platelet Count 289 K/uL (130-400); RDW Coefficient of Variation 13.2 % (11.5-14.5); RDW Standard Deviation 43.2 fL (36.4-46.3); Red Blood Count 3.64 M/uL (4.2-5.4); White Blood Count 9.52 K/uL (4.8-10.8)
[2019-05-04] MEDS: NICOTINE 21 MG/24 HR TDSY TD SCH (08:37)
[2019-05-04] MEDS: DOCUSATE SODIUM 100 MG CAP PO SCH ×2 (08:38→20:27)
[2019-05-04] MEDS: PRENATAL VITAMIN 1 TAB PO SCH (08:38)
[2019-05-04] MEDS: IBUPROFEN 600 MG TAB PO PRN ×2 (08:38→20:27)
[2019-05-04] MEDS: METHADONE HCL 5 MG TAB PO SCH (08:39)
[2019-05-04] MEDS: FERROUS SULFATE 325 MG TAB PO SCH (08:39)
--- NOTE | 2019-05-04 08:48 | Obstetrical Progress Note ---
Date of Service May 04, 2019 Physical Exam Physical Exam: abdomen soft and non tender vaginal bleeding scant to moderate no calf tenderness ambulating well Results & Data Vital Signs (Past 12 Hours) Vital Signs Temp Pulse Resp BP Pulse Ox 05/04/19 07:30 36.6 C 81 16 109/64 05/04/19 03:15 86 16 114/63 99 05/03/19 23:00 36.8 C 83 18 110/67 97
[2019-05-04] MEDS ORDERED: PATIENT'S OWN CONTROLLED MED PO SCH ×2 (09:00)
[2019-05-04] MEDS ORDERED: METHADONE ORAL SOLN 10 MG/5 ML UDP PO SCH (09:00)
[2019-05-04] MEDS ORDERED: METHADONE ORAL SOLN 2 MG/ML PO SCH ×2 (09:00)
[2019-05-04] MEDS ORDERED: BISACODYL 5 MG TABEC PO SCH (20:00)
[2019-05-05] MEDS: IBUPROFEN 600 MG TAB PO PRN ×2 (04:20→08:45)
[2019-05-05 06:14] LABS: Hematocrit (blood only) 31.4 % (37-47); Hemoglobin 10.7 g/dL (12.0-16.0)
--- NOTE | 2019-05-05 08:24 | Obstetrical Progress Note ---
Date of Service May 05, 2019 Physical Exam Physical Exam: abdomen soft and non tender vaginal bleeding scant to moderate no calf tenderness ambulating well Results & Data Vital Signs (Past 12 Hours) Vital Signs Temp Pulse Resp BP 05/04/19 23:40 36 C L 63 18 109/57 L
[2019-05-05] MEDS: DOCUSATE SODIUM 100 MG CAP PO SCH (08:45)
[2019-05-05] MEDS: PRENATAL VITAMIN 1 TAB PO SCH (08:45)
[2019-05-05] MEDS: FERROUS SULFATE 325 MG TAB PO SCH (08:45)
[2019-05-05] MEDS: METHADONE HCL 5 MG TAB PO SCH (08:46)
[2019-05-05] MEDS ORDERED: BISACODYL 10 MG SUPP PR PRN (09:00)
== END 2019-05-05 09:15 | disposition home or self-care (01) | DRG 806 ==
LOC: 4S1 10:39 → OPB 10:39 → 4S1 11:38 → 4S2 19:35